=== PATIENT | female | born 1985 | race Caucasian/White ===

== ENCOUNTER 2022-05-12 17:23 | Inpatient (IN) | payer BC ==
[~2022-05-12 17:23] MED LIST: Bupivacaine/Epinephrine 0.25% 30 ML VIAL ONE
[2022-05-12] MEDS ORDERED: NS w/ Oxytocin 30 units 500 ML ONE (18:27)
[2022-05-12] MEDS ORDERED: Ondansetron PF 4 MG/2 ML Vial IVP PRN (18:29)
[2022-05-12] MEDS ORDERED: NS w/ Oxytocin 30 units 500 ML IV SCH ×2 (18:29)
[2022-05-12] MEDS ORDERED: HYDROcodone/Acetaminophen 5/325 mg Tablet PO PRN ×2 (18:29)
[2022-05-12] MEDS ORDERED: hydrALAZINE 20 MG/ML VIAL SLOW IVP PRN (18:29)
[2022-05-12] MEDS ORDERED: Ibuprofen 800 MG TAB PO PRN (18:29)
[2022-05-12] MEDS ORDERED: Acetaminophen 500 MG TAB PO PRN (18:29)
[2022-05-12] MEDS ORDERED: Diphenoxylate HCl/Atropine Tablet PO PRN ×2 (18:29)
[2022-05-12] MEDS ORDERED: Lactated Ringer's 1,000 ML IV SCH (18:29)
[2022-05-12] MEDS ORDERED: Misoprostol 200 MCG TAB PR PRN (18:29)
[2022-05-12] MEDS ORDERED: Zolpidem Tartrate 5 MG TAB PO PRN (18:29)
[2022-05-12] MEDS ORDERED: Lidocaine 1% (PF) 30 ML VIAL SC PRN (18:29)
[2022-05-12] MEDS ORDERED: Docusate 100 MG CAP PO PRN (18:29)
[2022-05-12] MEDS ORDERED: Promethazine HCl 25 MG/ML VIAL IM PRN (18:29)
[2022-05-12 18:34] VITALS: BMI 29.6
[2022-05-12 18:36] LABS: Hemoglobin 11.9 g/dL (12.0-15.5); Mean Corpuscular HGB CONC 34.8 g/dL (32.0-36.0); Mean Corpuscular Hemoglobin 29.4 pg (27.0-33.0); Mean Corpuscular Volume 84.4 fl (81.6-98.3); Mean Platelet Volume 11.2 fl (7.4-10.4); Platelet Count 172 10x3/uL (150-450); RBC Distribution Width 13.3 % (11.5-14.5); Red Blood Cell (RBC) Count 4.05 10x6/uL (3.90-5.03); White Blood Cell (WBC) Count 8.1 10x3/uL (3.5-10.5)
[2022-05-12 19:02] LABS: Syphilis Antibody Nonreactive (Nonreactive); Syphilis Antibody Index 0.02 S/CO (<1.00 Non-Reactive)
[2022-05-12 19:04] LABS: HIV (1/2) Antibody/Antigen Non-Reactive (NonReactive); Hep B Surf Ag Non-Reactive S/CO (NonReactive)
[2022-05-12 21:57] LABS: SARS-CoV-2 NAA Rapid Test Not Detected (NotDetected)
[2022-05-12] MEDS ORDERED: Fentanyl 2 mcg/Bup 0.1% Cadd 100 ML ONE (22:56)
[2022-05-13] MEDS ORDERED: Promethazine HCl 25 MG/ML VIAL IM PRN (00:07)
[2022-05-13] MEDS ORDERED: Lactated Ringer's 500 ML IV PRN (00:07)
[2022-05-13] MEDS ORDERED: diphenhydrAMINE 50 MG/ML VIAL IVP PRN (00:07)
[2022-05-13] MEDS ORDERED: Moisturizing Cream (Eucerin) 113 GM JAR TOP PRN (00:07)
[2022-05-13] MEDS ORDERED: Ondansetron PF 4 MG/2 ML Vial IVP PRN ×2 (00:07→20:01)
[2022-05-13] MEDS ORDERED: ePHEDrine Sulfate 50 MG/10 ML VIAL SLOW IVP PRN (00:07)
[2022-05-13] MEDS ORDERED: Naloxone HCl 0.4 mg/ml Vial IVP PRN ×2 (00:07)
[2022-05-13] MEDS ORDERED: Acetaminophen 325 MG TAB PO PRN (00:07)
[2022-05-13] MEDS ORDERED: Communication Order-Pharmacy FS SCH (00:15)
[2022-05-13] MEDS ORDERED: Fentanyl 2 mcg/Bupivacaine 0.1% Cassette 100 ML EPIDURAL SCH (00:15)
[2022-05-13] MEDS ORDERED: Fentanyl 2 mcg/Bup 0.1% Cadd 100 ML ONE ×3 (07:04→13:45)
[2022-05-13] MEDS ORDERED: Methylergonovine 0.2 MG/ML VIAL ONE (19:23)
[2022-05-13] MEDS ORDERED: Carboprost 250 MCG/ML AMP ONE (19:23)
[2022-05-13] MEDS ORDERED: hydrALAZINE 20 MG/ML VIAL SLOW IVP PRN (20:01)
[2022-05-13] MEDS ORDERED: Bisacodyl 10 MG SUPP PR PRN (20:01)
[2022-05-13] MEDS ORDERED: Preparation H Ointment 28 GM TUBE PR PRN (20:01)
[2022-05-13] MEDS ORDERED: Misoprostol 200 MCG TAB VAG PRN (20:01)
[2022-05-13] MEDS ORDERED: Boostrix 0.5 ML (Tdap) VIAL IM ONE (20:01)
[2022-05-13] MEDS ORDERED: Zolpidem Tartrate 5 MG TAB PO PRN (20:01)
[2022-05-13] MEDS ORDERED: Lanolin Ointment 7 GM TUBE TOP PRN (20:01)
[2022-05-13] MEDS ORDERED: HYDROcodone/Acetaminophen 5/325 mg Tablet PO PRN ×2 (20:01)
[2022-05-13] MEDS ORDERED: Benzocaine-Menthol 82.5 ML CAN TOP PRN (20:01)
[2022-05-13] MEDS ORDERED: Milk Of Magnesia 30 ML UDCUP PO PRN (20:01)
[2022-05-13] MEDS ORDERED: diphenhydrAMINE 25 MG CAP PO PRN (20:01)
[2022-05-13] MEDS ORDERED: Witch Hazel-Glycerin 1 EACH JAR TOP PRN (20:11)
[2022-05-13] MEDS ORDERED: NS w/ Oxytocin 30 units 500 ML IV SCH (20:15)
[2022-05-13] MEDS: Ibuprofen 800 MG TAB PO SCH (21:35)
[2022-05-14] MEDS: Docusate 100 MG CAP PO SCH ×3 (00:54→21:54)
[2022-05-14 04:40] LABS: Hemoglobin 11.3 g/dL (12.0-15.5); Mean Corpuscular HGB CONC 34.5 g/dL (32.0-36.0); Mean Corpuscular Hemoglobin 29.7 pg (27.0-33.0); Mean Corpuscular Volume 86.1 fl (81.6-98.3); Mean Platelet Volume 10.8 fl (7.4-10.4); Platelet Count 140 10x3/uL (150-450); RBC Distribution Width 13.4 % (11.5-14.5); Red Blood Cell (RBC) Count 3.81 10x6/uL (3.90-5.03); White Blood Cell (WBC) Count 9.5 10x3/uL (3.5-10.5)
[2022-05-14] MEDS: Ibuprofen 800 MG TAB PO SCH ×3 (05:14→21:55)
[2022-05-14] MEDS: Ferrous Sulfate 325 MG TAB PO SCH ×2 (08:26→18:45)
[2022-05-14] MEDS: Prenatal Vitamin 1 TAB PO SCH (08:27)
[2022-05-15] MEDS: Ibuprofen 800 MG TAB PO SCH (05:59)
[2022-05-15] MEDS: Ferrous Sulfate 325 MG TAB PO SCH (07:14)
[2022-05-15 08:30] VITALS: BP 116/69; TEMP 98.3
[2022-05-15] MEDS: Docusate 100 MG CAP PO SCH (09:21)
[2022-05-15] MEDS: Prenatal Vitamin 1 TAB PO SCH (09:21)
== END 2022-05-15 11:35 | disposition home or self-care (01) | DRG 807 ==
LOC: CSHLD 17:23 → CSHPP 05-13 23:34
PROVIDERS: ADMIT Obstetrics & Gynecology; ATTEND Obstetrics & Gynecology
PROC: 3E033VJ Introduction of Other Hormone into Peripheral Vein, Percutaneous Approach (ICD-10-PCS; 2022-05-12)
PROC: 10E0XZZ Delivery of Products of Conception, External Approach (ICD-10-PCS; principal; 2022-05-13)
PROC: 10907ZC Drainage of Amniotic Fluid, Therapeutic from Products of Conception, Via Natural or Artificial Opening (ICD-10-PCS; 2022-05-13)
PROC: 0HQ9XZZ Repair Perineum Skin, External Approach (ICD-10-PCS; 2022-05-13)
DX: O36.8130 Decreased fetal movements, third trimester, not applicable or unspecified (principal); Z37.0 Single live birth; Z3A.38 38 weeks gestation of pregnancy; Z20.822 Contact with and (suspected) exposure to COVID-19; Z86.16 Personal history of COVID-19; Z79.82 Long term (current) use of aspirin; O70.0 First degree perineal laceration during delivery
CPT/HCPCS: 36415; 85027; 86780; 86850; 86900; 86901; 87340; 87389; U0002

== ENCOUNTER 2023-02-01 10:41 | Emergency (ER) | payer OTHER, BC ==
[2023-02-01 12:11] LABS: HIV (1/2) Antibody/Antigen Non-Reactive (NonReactive); HIV 1/2 INDEX 0.14 S/CO (<1.00)
[2023-02-01 14:49] LABS: Hep C IgG Ab Non-Reactive S/CO (NonReactive); Hep C Index 0.12 S/CO (0-0.79)
[2023-02-01 16:18] LABS: HBSAB Concentration 3616.11 mIU/mL; Hep B Surf AB Reactive (NonReactive)
== END 2023-02-01 12:07 | disposition home or self-care (01) ==
LOC: CSHERS 10:41
DX: Z77.21 Contact with and (suspected) exposure to potentially hazardous body fluids (principal)
CPT/HCPCS: 36415; 99283

== ENCOUNTER 2023-06-19 13:33 | Outpatient (CLI) | payer BC ==
[2023-06-19 15:09] LABS: Hematocrit 40.7 % (34.9-44.5); Hemoglobin 13.5 g/dL (12.0-15.5); Mean Corpuscular HGB CONC 33.2 g/dL (32.0-36.0); Mean Corpuscular Hemoglobin 29.2 pg (27.0-33.0); Mean Corpuscular Volume 88.1 fl (81.6-98.3); Mean Platelet Volume 9.6 fl (7.4-10.4); Platelet Count 301 10x3/uL (150-450); RBC Distribution Width 12.8 % (11.5-14.5); Red Blood Cell (RBC) Count 4.62 10x6/uL (3.90-5.03); White Blood Cell (WBC) Count 6.3 10x3/uL (3.5-10.5)
[2023-06-19 15:15] LABS: Bilirubin Neg (Negative); Blood, Urine 25 (Negative); Glucose, Urine (Dipstick) Normal (Negative); Ketone, Urine Negative (Negative); Leukocyte Negative (Negative); Nitrite Negative (Negative); Protein, Urine (Dipstick) Negative (Neg-Trace); Specific Gravity, Urine 1.015 (1.005-1.030); Urobilinogen Normal mg/dL (Less than 2)
[2023-06-19 15:45] LABS: Clarity Clear (Clear)
[2023-06-19 15:55] LABS: BHCG - Serum Negative (NEGATIVE); Pregs Control Background? CLEAR/WHITE (CLR/WHITE); Pregs Control Bar Appear? YES (CONTROL BAR)
== END 2023-06-19 13:34 | disposition home or self-care (01) ==
LOC: CSHLAB 13:33
PROVIDERS: ATTEND Obstetrics & Gynecology
DX: Z01.812 Encounter for preprocedural laboratory examination (principal); N83.202 Unspecified ovarian cyst, left side
CPT/HCPCS: 81003; 84703; 85027

== ENCOUNTER 2023-06-22 08:32 | Day surgery (SDC) | payer BC ==
[2023-06-19 13:48] VITALS: BMI 25.4
[2023-06-22] MEDS ORDERED: Scopolamine 1.5 mg/72 hour Patch ONE (09:52)
[2023-06-22] MEDS ORDERED: Bupivacaine PF 0.5% 30 ML VIAL ONE (10:17)
[2023-06-22] MEDS ORDERED: EPINEPHrine 1 MG/ML VIAL ONE (10:17)
[2023-06-22] MEDS ORDERED: Promethazine HCl 25 MG/ML VIAL ONE (10:44)
[2023-06-22] MEDS ORDERED: PROPOFOL 20 ML ONE (10:45)
[2023-06-22] MEDS ORDERED: Fentanyl 250 MCG/5 ML VIAL ONE (10:45)
[2023-06-22] MEDS ORDERED: CEFAZOLIN 2 GM VIAL ONE (10:49)
[2023-06-22] MEDS ORDERED: Dexamethasone 4 mg/ml Vial ONE (11:18)
[2023-06-22] MEDS ORDERED: Glycopyrrolate 0.2 MG/ML 5 ML SYRINGE ONE (11:18)
[2023-06-22] MEDS ORDERED: Rocuronium Bromide 10 MG/ML (10ML VIAL) ONE (11:18)
[2023-06-22] MEDS ORDERED: Lidocaine 1% PF 5 ML VIAL ONE (11:18)
[2023-06-22] MEDS ORDERED: Ondansetron PF 4 MG/2 ML Vial ONE (11:18)
[2023-06-22] MEDS ORDERED: PHENYLEPHRINE-NS 100 MCG/ML 10 ML SYRINGE ONE (11:29)
== END 2023-06-22 14:05 | disposition home or self-care (01) ==
LOC: CSHSDC 08:32
PROVIDERS: ATTEND Obstetrics & Gynecology
PROC: 0UB24ZZ Excision of Bilateral Ovaries, Percutaneous Endoscopic Approach (ICD-10-PCS; principal; 2023-06-22)
DX: D27.1 Benign neoplasm of left ovary (principal); D27.0 Benign neoplasm of right ovary
CPT/HCPCS: 88112; 88302; 88305; J0171; J1100; J2405; J2550; J2704; J3010; Q9968; S0020

== ENCOUNTER 2025-07-15 12:20 | Outpatient (CLI) | payer BC | END 2025-07-15 12:21 | disposition home or self-care (01) | LOC: CSHMAMMO 12:20 | PROVIDERS: ATTEND Obstetrics & Gynecology | DX: Z12.31 Encounter for screening mammogram for malignant neoplasm of breast (principal); Z80.3 Family history of malignant neoplasm of breast | CPT/HCPCS: 77063; 77067 ==